=== PATIENT | male | born 1960 | race African-American/Black ===

== ENCOUNTER 2016-07-09 09:00 | Inpatient (IN) | payer OTHER ==
[~2016-07-09] VITALS: Ht 170.2 cm; Wt 123.1 kg
[2016-07-09] VITALS (49 sets, daily range): BP systolic 75–159; BP diastolic 41–72
--- NOTE | ~2016-07-09 | DEA ---
[facility] [place] [address] SUMMARY Name: [facility] Room #: 243-P [facility] IN M.R.#: [id number] Admission: 07/09/16 Attend Phys: Jigna Chawla MD Discharge: 08/01/16 Date of : 56 Report #: [id number] THIS REPORT FOR: //name// CC: Kevin Chawla DATE OF SERVICE: 08/01/2016 EXPIRATION DATE: 08/01/2016 REASON FOR : 1. Sepsis. 2. Septic shock. 3. Multiorgan failure. 4. Respiratory failure. 5. Aspiration pneumonitis. 6. Acute kidney injury requiring dialysis. CONSULTATION: 1. General surgery. 2. Infectious disease. 3. GI. 4. Nephrology. PROCEDURES DONE: Numerous including multiple chest x-rays, videoscopic swallowing, numerous CTs. Resuscitation on multiple occasions. HISTORY OF PRESENT ILLNESS: The patient is a 55-year-old who presented to the emergency room from his nursing facility. His facility stated that he had altered mental status and he was admitted to the intensive care unit in respiratory failure, acute kidney injury, was found to have an elevated creatinine and CPK of 20,000. He is known to have coronary artery disease status post CABG, status post AICD for a sick sinus syndrome. Numerous consultations were obtained on the patient. Fortunately enough, the patient improved and he was moved out of the intensive care unit after stabilizing his conditions with sepsis protocol. All of the consultations were obtained on the patient during his hospital stay. He was moved to the floor and failed swallowing evaluations. A PEG tube was placed for the patient. He stayed in the floor for a few days and then moved to the ICU because of a possible aspiration. His condition deteriorated within 48 hours after the aspirations, was intubated and started on renal replacement therapy with continuous dialysis for acute kidney injury. He had multiple resuscitations on the day of his . I had a lengthy discussion with his sister who is the next of kin and explained the situation for her. The patient was on max doses of pressors requiring repeated resuscitations with all the CPR medications. After I discussed with the family, specifically his sister, decision was made to take [address] [address] SUMMARY Name: SUMANTH ESCALANTE [facility] Room #: 243-P [facility] IN M.R.#: [id number] Admission: 07/09/16 Attend Phys: Jigna Chawla MD Discharge: 08/01/16 Date of : 56 Report #: [id number] the patient comfort care and discontinue all current medical treatment due to nonresponse and deterioration of his condition. He was pronounced by another physician and succumbed to immediately after withdrawal of care. DISCHARGE CONDITION: To geovanny. <ELECTRONICALLY SIGNED> By: Danielle Pantoja MD 08/17/16 1524 1445 1657 Danielle Pantoja MD /nt
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
--- NOTE | ~2016-07-09 | P ---
[facility] [place] [address] PROCEDURE REPORT Name: SUMANTH ESCALANTE [facility] Room #: 430-P ADM IN M.R.#: [id number] Admission: 07/09/16 Attend Phys: Jigna Chawla MD Discharge: Date of : 56 Report #: [id number] THIS REPORT FOR: //name// CC: Gaetano Wolf DO Arianna Chawla DATE OF SERVICE: 07/29/2016 PATIENT OF: Dr. Jigna Chawla, Dr. Mistry and Dr. Kevin Wolf. Reason for EGD was for possible PEG tube placement. The patient has removed several PEG tubes in the past on his own. He has no axis for food or fluid administration. Informed consent for this procedure was obtained from the patient's family prior to the administration of any medication. The risks of the procedure, which include bleeding, perforation, infection, complications of sedation and the possibility I could miss something were explained to the DPOA and they have given their consent for the PEG tube placement. Ancef 1 gram was administered IV piggyback prior to the procedure. The RatingBugn upper videoscope was introduced through the upper esophageal sphincter and advanced under direct visualization to the second portion of the duodenum. Findings were noted on withdrawal of the scope. Duodenal mucosa appears normal throughout its entirety. Pylorus, normal mucosa. Antrum, normal mucosa. Body, normal mucosa. There were several places where the patient has had previous PEG site that were visible on the greater curvature of the stomach. Cardia and fundus, normal mucosa. Retroflex view did not reveal any abnormalities. Scope was withdrawn to the esophagus. Esophageal mucosa appears normal throughout its entirety. The scope was advanced down into the stomach again. Despite, multiple attempts to locate a proper axis point for the PEG tube, I was never convinced that any of them were safe for PEG tube placement as they appeared that possibly a piece of colon or scar tissue was right there blocking the insertion of the PEG tube; therefore, the procedure was terminated and the scope was withdrawn. The patient went to the recovery area in stable condition. He tolerated the procedure well, but no PEG tube was placed because there was no axis point. My recommendations were to consult surgery and I have put a consult in for Dr. Curiel for PEG tube placement after discuss with Dr. Mistry who agreed and hopefully Dr. Curiel will be able to do a mini laparoscopy and be able to get this PEG tube in safely for the patient. [address] [address] PROCEDURE REPORT Name: SUM[facility] ESCALANTE [facility] Room #: 430-P [facility] IN .R.#: [id number] Admission: 07/09/16 Attend Phys: Jigna Chawla MD Discharge: Date of : 56 Report #: [id number] Thank you very much once again for allowing me to participate in his care, Dr. Mistry. <ELECTRONICALLY SIGNED> By: Martha Foster DO 07/30/16 1356 1453 2248 Martha Foster DO /nt
--- NOTE | ~2016-07-09 | 2DMMODE ---
[facility] [place] [address] 2 D/M-MODE ECHOCARDIOGRAM Name: SUMANTH ESCALANTE [facility] Room #: 250-P [facility] IN [facility].#: [id number] Admission: 07/09/16 Attend Phys: Jigna Chawla MD Discharge: Date of : 56 Date of Service: 07/13/1620 Report #: [id number] THIS REPORT FOR: //name// Transthoracic Echocardiography Ordering physician: Danielle Pantoja I. Referring physician: Kevin Wolf Ahmed I. Roller Shop Supervisor: VLADIMIR Hodges Indications/History: Sepsis, HTN, DM, PPM. BP: 98 / 49 HR: 80bpm Height: 67in Weight: 314.3lb Study data: M-mode, complete 2D, complete spectral Doppler, and color Doppler. Location: Bedside. Routine. Image quality was adequate. The study was technically limited due to poor acoustic window availability and body habitus. Intravenous contrast (Definity) was administered. 2D measurements Normal Normal LVID ED 51.5mm 36-57 IVS ED 13mm 6-11 LVID ES 32.8mm 23-40 LVPW ED 12.5mm 6-11 LA volume index 16-28 AoRoot diam ED 27.9mm 21-37 LVOT diameter 23mm 18-23 Findings: Left ventricle: The cavity size was normal. Wall thickness was increased in a pattern of mild LVH. Systolic function was normal. Wall motion was normal. Right ventricle: The cavity size was normal. Pacer wire or catheter noted in right ventricle. Systolic function was normal. Right atrium: The atrium was dilated. Pacer wire or catheter noted in right atrium. Left atrium: The atrium was dilated. Aortic valve: Structurally normal valve. Doppler: There was no stenosis. No regurgitation. Peak velocity: 152.8cm/s (S). Mitral valve: Structurally normal valve. Doppler: [facility] [address] [place] [address] 2 D/M-MODE ECHOCARDIOGRAM Name: SUMANTH ESCALANTE III Room #: 250-P ADM IN Ashish.#: [id number] Admission: 07/09/16 Attend Phys: Jigna Chawla MD Discharge: Date of : 56 Date of Service: 07/13/16 0920 Report #: [id number] findings are consistent with mild stenosis. Mild regurgitation. Peak E-wave velocity: 144.3cm/s. Mean gradient: 6.7mm Hg (D). Peak gradient: 8.3mm Hg (D). Peak A-wave velocity: 113cm/s. Tricuspid valve: Structurally normal valve. Doppler: There was no evidence for stenosis. Moderate-severe regurgitation. Regurgitant peak velocity:366cm/s. Peak RV-RA gradient:54mm Hg (S). Pulmonic valve: Structurally normal valve. Doppler: There was no evidence for stenosis. Trivial regurgitation. Pericardium: There was no pericardial effusion. Aorta: Aortic root: The aortic root was normal in size. Pulmonary artery: Systolic pressure was estimated to be54mm Hg. Plus the right atrial pressure. Diastolic function: The study is not technically sufficient to allow evaluation of LV diastolic function. Systemic veins: Inferior vena cava: Not visualized. Conclusions 1. Left ventricle: The cavity size was normal. Wall thickness was increased in a pattern of mild LVH. Systolic function was normal. Wall motion was normal. 2. Right atrium: The atrium was dilated. 3. Left atrium: The atrium was dilated. 4. Aortic valve: Structurally normal valve. 5. Mitral valve: Structurally normal valve. Mild regurgitation. 6. Tricuspid valve: Structurally normal valve. Moderate-severe regurgitation. 7. Pulmonary arteries: Systolic pressure was estimated to be54mm Hg. <ELECTRONICALLY SIGNED> By: Devan Pike MD 07/13/16 1216 0920 1216 Devan Pike MD /rafal
--- NOTE | ~2016-07-09 | HC ---
[facility] [place] [address] CONSULTATION Name: SUMANTH ESCALANTE [facility] Room #: 250-P ADM IN M.R.#: [id number] Admission: 07/09/16 Attend Phys: Jigna Chawla MD Discharge: Date of : 56 Report #: [id number] THIS REPORT FOR: //name// CC: Kevin Chawla DATE OF SERVICE: 07/09/2016 REASON FOR CONSULTATION: Acute kidney injury, critical care emergency room consultation. HISTORY OF PRESENT ILLNESS: This 55-year-old male is seen in consultation for evaluation of acute kidney injury. He was previously hospitalized at [facility] in February of this year due to altered mental status and slurred speech. [facility] a [facility]. He has a history of coronary artery disease with previous coronary artery bypass surgery and type 2 diabetes mellitus. PAST MEDICAL HISTORY: He has hypothyroidism, dyslipidemia, sick sinus syndrome and a history of previous pacemaker placement. The patient apparently grew increasingly confused and weak at the [facility] and was found an unresponsive condition in a pool of vomit. He was suspected of aspiration. An airway was placed and he was transported to the emergency room where he was subsequently intubated. PAST MEDICAL HISTORY: Otherwise remarkable as described above. He has undergone previous coronary artery bypass surgery. He has an indwelling permanent pacemaker. He has a history of hypertension, diabetes mellitus and chronic diarrhea. MEDICATIONS: Reported on admission include Imodium, Lasix, aspirin, Glucophage, Solu-Cortef, buspirone, Ultram, multivitamin, melatonin, clonidine, Desyrel, Aldactone, Flomax, Questran, Tums, vitamin D, Zestril, Tylenol, Synthroid, vitamin C, Ventolin, and Acidophilus. ALLERGIES: Include STATINS. FAMILY HISTORY, PERSONAL AND SOCIAL HISTORY, REVIEW OF SYSTEMS: Otherwise unknown. PHYSICAL EXAMINATION: GENERAL: At the time of consultation in the emergency room revealed a chronically ill, intubated, debilitated patient who was unresponsive. VITAL SIGNS: Blood pressure 164/66, pulse 80, temperature 36.1, respirations 27. [facility] [address] [place] [address] CONSULTATION Name: SUMANTH ESCALANTE [facility] Room #: [facility]-P [facility] IN M.R.#: [id number] Admission: 07/09/16 Attend Phys: Jigna Chawla MD Discharge: Date of : 56 Report #: [id number] SKIN: Dry. There was diminished turgor noted. HEENT: Mucous membranes were dry. The head was normocephalic and atraumatic. The sclerae are white. The pharynx is benign. NECK: Supple. There was no JVD present. LUNGS: Mahoney reveal coarse rhonchi bilaterally. CARDIOVASCULAR: Reveals a regular rate and rhythm without rub. ABDOMEN: Obese, soft and nontender without palpable mass or organomegaly. Marx catheter is in place draining a scant amount of concentrated appearing urine. NEUROLOGIC: Reveals the patient to be deeply sedated and unresponsive at this time. LABORATORY STUDIES: Available at the time of consultation include sodium 150, potassium 3.3, chloride 105, CO2 of 28, BUN 22, creatinine 5.6, glucose 113, calcium 9.8. White blood cell count 13,700, hemoglobin 12.0, hematocrit 36.4, platelet count 263,000. ASSESSMENT: 1. Acute kidney injury in the setting of a dehydrated patient. He is clearly clinically dehydrated. He has hypokalemia and metabolic alkalosis suggesting prerenal azotemia as a primary component. He has no hard indications for undertaking dialysis treatment at this time in view of his low potassium and alkalotic state. He may progress to needing this if he suffers acute tubular necrosis related to his aspiration and pulmonary event. We will follow him closely and continue isotonic/hypotonic fluid resuscitation. We will alternate fluids in view of his preexisting hypernatremia. 2. Hypernatremia suggesting dehydration. 3. Hypokalemia for initial replacement. 4. Respiratory failure, post suspected aspiration. 5. Diabetes mellitus. 6. Coronary artery disease status post previous coronary artery bypass surgery. 7. Cardiac arrhythmia status post pacemaker placement. PLAN: This patient is critically ill and will be admitted to the intensive care unit for further fluid and electrolyte management as well as mechanical ventilation. Thank you very much for this gentleman's consultation. Critical care time 1 hour. <ELECTRONICALLY SIGNED> By: Heladio Mars MD 07/13/161930 0755 51 Heladio Mars MD /nt
--- NOTE | ~2016-07-09 | HC ---
[facility] [place] [address] CONSULTATION Name: SUMANTH ESCALANTE [facility] Room #: [facility]-P [facility] IN M.R.#: [id number] Admission: 07/09/16 Attend Phys: Jigna Chawla MD Discharge: 08/01/16 Date of : 56 Report #: [id number] THIS REPORT FOR: //name// CC: Kevin Chawla DATE OF SERVICE: 07/29/2016 I have been asked to evaluate this 55-year-old male who was presented with severe aspiration pneumonia, inability to swallow and keep foods down, who has been hospitalized at a nursing facility. The patient has mental challenge and unable to give any adequate information. His past medical history is consistent with multiple medical illnesses as well as what appears to be a median sternotomy, cardiac surgery scar as well as a right upper quadrant presumed cholecystectomy scar. The patient is currently of the state and has a durable power of sports attorney who is a sister. ALLERGIES: Not obtainable, see the record. PAST MEDICAL HISTORY: As noted above. REVIEW OF SYSTEMS: Not obtainable. PHYSICAL EXAMINATION: GENERAL: Demonstrates the patient resting comfortably in bed, unable to give adequate information. LUNGS: Clear as the bases. CARDIOVASCULAR: Status regular rate and rhythm. ABDOMEN: Not distended, right upper quadrant subcostal scar consistent with cholecystectomy, nontender. No guarding or rebound. Upper midline median sternotomy scar extends onto the abdominal skin and midline of the abdomen is unremarkable. NEUROLOGIC: Mental challenged. DIAGNOSTIC IMPRESSION: Recurrent aspiration pneumonia, protein calorie malnutrition. PLAN: The patient will benefit from an open gastrostomy tube insertion as the patient was unable to have a percutaneous endoscopic gastrostomy tube placed by GI. [facility] [address] [place] [address] CONSULTATION Name: SUMANTH ESCALANTE Ramin [facility] Room #: 243-P [facility] IN M.R.#: [id number] Admission: 07/09/16 Attend Phys: Jigna Chawla MD Discharge: 08/01/16 Date of : 56 Report #: [id number] Thank you for allowing us to participate in his care and we will proceed with scheduling and proceed with the open gastrostomy tube placement. <ELECTRONICALLY SIGNED> By: Kenneth Bland MD, FACS 08/03/16 1737 0923 1126 Kenneth Bland MD, FACS /nt
--- NOTE | ~2016-07-09 | EEG ---
[facility] [place] [address] ELECTROENCEPHALOGRAM Name: SUMANTH ESCALANTE [facility] Room #: 250-P ADM IN M.R.#: [id number] Admission: 07/09/16 Attend Phys: Jigna Chawla MD Discharge: Date of : 56 Report #: [id number] THIS REPORT FOR: //name// CC: Kevin Chawla DATE OF SERVICE: 07/14/2016 This patient is being evaluated for altered mental status. EEG was done by placing the electrodes by standard 10-20 system of electrode placement. Both referential and sequential montages were used for recording. Background activity in this patient's EEG is about 6-7 Hz and 15-20 microvolts. It is a symmetrical activity, but it is slow on both sides. Activity continued to be about the same throughout the records. It is difficult to tell when the patient is asleep or awake. Photic stimulation was unremarkable. Throughout the record, no active epileptiform activity was noticed. IMPRESSION: This is an abnormal EEG which would be consistent with the diagnosis of encephalopathy. However, the EEG is nonspecific and can occur with various other etiologies including effect of psychotropic medication, dementia, drowsiness, etc. Clinical correlation is recommended. Thank you very much for this referral. <ELECTRONICALLY SIGNED> By: Randolph Ureña MD 07/16/16 1235 1809 1833 Randolph Ureña MD /nt
--- NOTE | ~2016-07-09 | EKG ---
[address] [place] [address] ELECTROCARDIOGRAM REPORT Name: SUMANTH ESCALANTE III Room #: 250-P ADM IN M.R.#: [id number] Admission: 07/09/16 Attend Phys: Jigna Chawla MD Discharge: Date of : 56 Report #: [id number] THIS REPORT FOR: //name// [facility] Test Date: 2016-07-10 Test Time: 00:59:25 Pat Name: SUMANTH ESCALANTE Department: Room: 250 P Gender: M Brick Loader: ADAM RAYMODN : 1960 Requested By: Jigna Chawla Order Number: [id number] MD: Suresh Angel Measurements Intervals [place] Rate: 81 P: GA: 111 QRS: 86 QRSD: 104 T: 58 QT: 471 QTc: 547 Interpretive Statements Sinus rhythm Repol abnrm suggests ischemia, anterior leads Prolonged QT interval no previous ECGs available for comparison Electronically Signed On 07-13-2016 8:14:09 YARDER PUNCHER by Suresh Angel [email or web address] <ELECTRONICALLY SIGNED> By: Suresh Angel MD, [facility] 07/13/16 0814 0059 0059 Suresh Angel MD, FACC /EPI
--- NOTE | ~2016-07-09 | O ---
[facility] [place] [address] OPERATIVE REPORT Name: SUMANTH ESCALANTE [facility] Room #: 243-P [facility] IN M.R.#: [id number] Admission: 07/09/16 Attend Phys: Jigna Chawla MD Discharge: 08/01/16 Date of : 56 Report #: [id number] THIS REPORT FOR: //name// CC: Kevin Chawla DATE OF SERVICE: 07/30/2016 PREOPERATIVE DIAGNOSES: Protein calorie malnutrition, inability to swallow. POSTOPERATIVE DIAGNOSES: Protein calorie malnutrition, inability to swallow. OPERATIVE PROCEDURE: Open gastrostomy tube insertion. SURGEON: Kenneth Bland M.D. CHECKROOM ATTENDANT: Navin Butler M.D. SECOND PENSION FUND MANAGER: Sobeida Gould MS4. INDICATIONS: A 55-year-old male who is unable to swallow, requires protein calorie malnutrition. OPERATIVE PROCEDURE: The patient was brought to the operating room suite and had satisfactory induction of general endotracheal anesthesia. Permission had been obtained from the patient's sister, durable power of environmental attorney. After satisfactory induction of general endotracheal anesthesia, the patient's entire abdomen was prepped and draped in usual sterile procedure with DuraPrep solution. An upper midline incision was performed. A few adhesions were present. These were taken down with electrocautery. The stomach was identified and grasped with [place] clamps. Two pursestring sutures of 2-0 PDS were placed along the greater curvature. A gastrotomy was then performed with the electrocautery. A 20-Swiss gastrostomy tube with double lumen and a balloon was then placed directly into the stomach under direct vision. The inner suture was ligated. The outer suture was ligated. Forward flushing of saline through both ports was accomplished without difficulty. The gastrostomy tube had been brought in through a stab wound in the left upper quadrant. Two old sutures were then utilized to approximate the serosal surface of the stomach to the anterior abdominal wall. This was accomplished at the 12, 6 and 9 positions. After this was satisfactory, the fascia was then approximated with running looped double stranded #1 PDS suture. After satisfactory fascial closure, irrigation of subcutaneous tissues was performed. Skin margins were then approximated with skin ebonie. Estimated blood loss less than 10 mL. [facility] [address] [place] [address] OPERATIVE REPORT Name: [facility] Room #: 243-P [facility] IN [facility].#: [id number] Admission: 07/09/16 Attend Phys: Jigna Chawla MD Discharge: 08/01/16 Date of : 56 Report #: [id number] patient tolerated the procedure well and he returned directly to recovery room in satisfactory and stable condition. <ELECTRONICALLY SIGNED> By: Kenneth Bland MD, FACS 08/17/16 1534 1036 1121 Kenneth Bland MD, FACS /nt
--- NOTE | ~2016-07-09 | HC ---
[facility] [place] [address] CONSULTATION Name: SUMANTH ESCALANTE [facility] Room #: [facility] IN M.R.#: [id number] Admission: 07/09/16 Attend Phys: Jigna Chawla MD Discharge: Date of : 56 Report #: [id number] THIS REPORT FOR: //name// CC: Kevin Chawla DATE OF SERVICE: 07/10/2016 REASON FOR CONSULTATION: Tachyarrhythmias. HISTORY OF PRESENT ILLNESS: This is an unfortunate 55-year-old obese black male who was admitted due to possible aspiration pneumonia and sepsis. The patient had been intubated and had been monitored when on the morning of consultation was identified as having a wide complex tachycardia. The patient's magnesium was low at 1.1 with a potassium of 3.3. The patient's rhythm strip demonstrated a slightly wider QRS, ____, but no evidence of AV disassociation present. The onset of this arrhythmia was not able to be caught on monitor. He subsequently converted on diltiazem for rate control even though he had been on IV amiodarone. The patient has since been in a sinus tachycardia without any significant recurrence. PAST MEDICAL HISTORY: Significant for: 1. Vague psychiatric issues, which fed a noncomplaint lifestyle. 2. Obesity. 3. Diabetes mellitus. 4. Hypertension. 5. Hypothyroidism. 6. Possible dysphagia, having had a feeding tube in the past. 7. Chronic diarrhea. ALLERGIES: STATINS, but the reaction is undefined. MEDICATIONS: Imodium, Lasix, aspirin, Glucophage, ____, buspirone, Ultram, multivitamin, melatonin, clonidine, ____ Aldactone, Flomax, Questran, Tums, vitamin D, Zestril, Tylenol, Synthroid, vitamin C, Zofran, Ventolin and acidophilus. PAST SURGICAL HISTORY: 1. Aortocoronary bypass grafting times 3. 2. Pacemaker placement in left chest for reasons undetermined. 3. Right knee surgery for infected knee. SOCIAL HISTORY: The patient is a former alcohol user, unknown history of tobacco or recreational drugs. He does live in a care facility. REVIEW OF SYSTEMS: Unable to be obtained due to the patient being intubated, [facility] [address] [place] [address] CONSULTATION Name: SUMANTH ESCALANTE [facility] Room #: [address] [place] [address] [place] ..#: [id number] Admission: 07/09/16 Attend Phys: Jigna Chawla MD Discharge: Date of : 56 Report #: [id number] but the review is noted from the chart. LABORATORY DATA: As stated above, but in addition to this, demonstrated a BUN and creatinine of 22 and 5.6 with an estimated GFR of 13. PHYSICAL EXAMINATION: GENERAL: An obese -Surinamese male, intubated, resting comfortably. HEENT: Normocephalic, atraumatic. Pupils are equal, round, reactive to light and accommodation. Extraocular muscles are intact. Sclerae and conjunctivae are anicteric. NECK: JVD is normal. Carotid upstrokes are bilaterally symmetrical. No bruits are heard. No thyromegaly. No lymphadenopathy. LUNGS: Clear to auscultation. No wheezes, rhonchi or crackles. No CVA tenderness. CARDIAC: Demonstrates a regular rhythm. Normal first and second heart sounds. No ventricular or atrial gallops, no rubs noted. No murmurs. No lifts or heaves, PMI normal. ABDOMEN: Soft, nontender, nondistended. Normal bowel sounds. EXTREMITIES: Without cyanosis, clubbing or edema. Distal pulses are intact. DTR symmetrical. NEUROLOGIC: Cranial nerves 2-12 are grossly normal and symmetrical. PSYCHIATRIC: Alert, oriented with normal affect. SKIN: Warm and dry. IMPRESSION: Tachyarrhythmias, there appears to be some evidence that it may be more of an atrial than ventricular. Either way, I am going to continue the diltiazem because it was needed to suppress the rate and the amiodarone in case we are dealing with an ischemic origin and ventricular tachyarrhythmias. We will follow along. <ELECTRONICALLY SIGNED> By: Devan Pike MD 07/11/16 1700 1512 2308 Devan Pike MD /nt
--- NOTE | ~2016-07-09 | HC ---
[facility] [place] [address] CONSULTATION Name: SUMANTH ESCALANTE [facility] Room #: 430-P ADM IN M.R.#: [id number] Admission: 07/09/16 Attend Phys: Jigna Chawla MD Discharge: Date of : 56 Report #: [id number] THIS REPORT FOR: //name// CC: Kevin Chawla HISTORY OF PRESENT ILLNESS: The patient is a 55-year-old black male who I have been asked to see for further evaluation of consideration of gastrostomy tube placement. He experienced progressive deterioration at the end of June approximately 2 weeks ago and weakness. He was found in a pool of his vomit after a fall and aspiration was suspected. He underwent resuscitation shortly thereafter and has had problems with dysphagia. PAST MEDICAL HISTORY: Remarkable for diabetes, hypothyroidism, dyslipidemia, sick sinus syndrome, coronary artery disease, CABG x 3 and pacemaker. MEDICATIONS ON ADMISSION: Imodium, Lasix, aspirin, Glucophage, Solu-Cortef, buspirone, Ultram, multivitamin melatonin, clonidine, Desyrel, Aldactone, Flomax, Questran, Tums, vitamin D, Zestril, Tylenol, Synthroid, vitamin C, Ventolin and acidophilus. ALLERGIES: He is allergic to STATINS. FAMILY HISTORY: Negative for inflammatory bowel disease or colon cancer. SOCIAL HISTORY: Past alcohol use, no drugs and no tobacco. REVIEW OF SYSTEMS: Not possible secondary to anxiety and altered mental status. PHYSICAL EXAMINATION: GENERAL: The patient is currently afebrile. VITAL SIGNS: Stable; however, he has periods of anxiety where his respiratory rate increases; otherwise, his baseline respiratory rate is in the range of 18-20 per minute. HEENT: Nonicteric. NECK: No JVD, thyromegaly or bruits. CARDIOVASCULAR: Not performed. PULMONARY: Not performed. ABDOMEN: Soft, nondistended and nontender. Normoactive bowel sounds, no hepatosplenomegaly. No stigmata of chronic liver disease. No abnormal masses or bruits. EXTREMITIES: No clubbing, cyanosis or edema. NEUROLOGIC: Not performed. RECTAL: Not performed. LABORATORY DATA: Pertinent labs include sodium 151, potassium 3.3, chloride 111, BUN 55 and creatinine 3.8. Serum chemistry also notable for normal liver [address] [address] CONSULTATION Name: SUMANTH ESCALANTE [facility] Room #: [address] [place] [address] [place] .R.#: [id number] Admission: 07/09/16 Attend Phys: Jigna Chawla MD Discharge: Date of : 56 Report #: [id number] tests. Albumin 2.9, hemoglobin 9.5 and platelet count 283. I do not have an INR on him. ASSESSMENT AND PLAN: In summary, in assistance for his recovery, gastrostomy tube feeding is reasonable, given recent difficulty swallowing secondary to multiple comorbid conditions. At this time, his acute abnormalities would suspend elective placement for the next couple of days. We will reassess as he proceeds and consider gastrostomy tube placement when safe. Again, I appreciate the opportunity to participate in the care of this nice man. <ELECTRONICALLY SIGNED> By: Petey Prater MD 07/26/16 1539 1225 1357 Pradip Dexter MD /nt
--- NOTE | ~2016-07-09 | EKG ---
[address] [place] [address] ELECTROCARDIOGRAM REPORT Name: SUMANTH ESCALANTE [id number] Admission: 07/09/16 Attend Phys: Discharge: Date of : 56 Report #: [id number] THIS REPORT FOR: //name// [facility] ED Test Date: 2016-07-09 Test Time: 09:02:47 Pat Name: SUMANTH ESCALANTE Department: Room: Gender: Trade Analyst: Kimberly IRIZARRY : 1960 Requested By: Mendoza Alberts Order Number: [id number] MD: Trip Zendejas Measurements Intervals [place] Rate: 103 P: 44 MA: 143 QRS: 104 QRSD: 101 T: 6 QT: 382 QTc: 500 Interpretive Statements Sinus tachycardia Anterior ST changes consider ischemia Electronically Signed On 07-09-2016 11:20:46 LEAD DESIGNER by Trip Zendejas [email or web address] <ELECTRONICALLY SIGNED> By: Trip Zendejas MD 07/09/16 1120 0902 0902 Trip Zendejas MD /EPI
[~2016-07-09 09:00] MED LIST: ALDACTONE25 MG PO; ASPIR 8181 MG PO; BUSPIRONE HCL10 MG PO; CLONIDINE0.1 PO; CORTEF 20 MG TA20 M1 PO; CORTEF10 MG PO; FLOMAX0.4 MG PO; LASIX 20 MG TAB20 MG PO; LEVOTHYROXIN0.125 M1 PO; LEVOTHYROXINE 0.15MG PO; LISINOPRIL10 MG PO; LOPERAMIDE 2 MG2 M1 PO; MELATONIN3 MG PO; METFORMIN HCL500 MG PO; MULTI VITAMIN1 EACH PO; QUESTRAN PACKET4 GM PO; TRAMADOL 50 MG50 MG PO; TRAZODONE HCL50 MG PO; TUMS PO; TYLENOL325 MG PO; VENTOLIN HFA 1818 GM INH; VISTARIL 25 MG25 M1 PO; VITAMIN D 5050000 I1 PO
[2016-07-09 09:22] LABS: ABG SAMPLE TYPE ARTERIAL; BE(vivo) 1.6 mmol/L (-2 to +3); O2(CT) 18.4 mL/dL (15.0-23.0); O2Hb 98.2 % (92.0-98.0); PCO2 40.4 mmHg (35.0-45.0); PO2 198.2 mmHg (80.0-100.0); pH 7.427 (7.360-7.450); sO2 99.4 % (92.0-98.0); tCO2 27.3 mmol/L (24.0-30.0)
[2016-07-09 09:23] LABS: LACTATE 4.02 mmol/L (0.5-2.0); STICK SITE R.RADIAL
[2016-07-09 09:50] LABS: URINE BILIRUBIN 2+ (Negative); URINE BLOOD NEGATIVE (Negative); URINE GLUCOSE-RANDOM* NEGATIVE (Negative); URINE KETONES NEGATIVE (Negative); URINE NITRITE NEGATIVE (Negative); URINE PROTEIN (DIPSTICK) TRACE (Negative); URINE SPECIFIC GRAVITY >= 1.030 (1.003-1.035); URINE UROBILINOGEN 0.2 E.U./dl (0.2-1.0)
[2016-07-09 09:52] LABS: URINE COLOR DK YELLOW
[2016-07-09 09:53] LABS: ICTOTEST (BILI CONFIRMATORY) Positive (Negative)
[2016-07-09 10:03] LABS: HEMATOCRIT 36.4 % (42.0-52.0); MCH 27.6 pg (26.0-34.0); MCHC 32.9 % (28.0-37.0); MCV 83.8 fL (80.0-100.0); PLATELET COUNT 263 thou/uL (150-400); RBC 4.35 mil/uL (4.50-6.00); RDW 15.6 % (10.5-14.5); WBC 13.7 thou/uL (4.0-11.0)
[2016-07-09] MEDS ORDERED: APAP500 PO (10:07)
[2016-07-09 10:08] LABS: MANUAL DIFF YES
[2016-07-09] MEDS ORDERED: TYLENOL325 MG PO (10:08)
[2016-07-09 10:11] LABS: CALCIUM 9.8 mg/dL (8.5-10.1); CREATININE 5.6 mg/dL (0.6-1.3); POTASSIUM 3.3 mmol/L (3.5-5.1)
[2016-07-09] MEDS ORDERED: LEVOTHYROXINE 0.15MG PO (10:11)
[2016-07-09] MEDS ORDERED: VITAMINC500 PO (10:14)
[2016-07-09] MEDS ORDERED: ONDANSETRON HCL4 M2 PO (10:16)
[2016-07-09] MEDS ORDERED: VENTOLIN HFA 1818 GM INH (10:16)
[2016-07-09] MEDS ORDERED: ACIDOPHILUS1 EAC3 PO (10:17)
[2016-07-09 10:18] LABS: TROPONIN-I 0.12 ng/mL (<0.04-0.07)
[2016-07-09 10:28] LABS: ABSOLUTE NEUTROPHILS 9.7 thou/uL (1.4-8.2); TOTAL CELL COUNT 100
[2016-07-09 13:23] LABS: ABG SAMPLE TYPE VENOUS; BE(vivo) 0.2 mmol/L (-2 to +3); HCO3 25.4 mmol/L (22.0-26.0); O2(CT) 11.1 mL/dL (15.0-23.0); O2Hb VENOUS 68.5 (65.0-85.0); PCO2 VENOUS 43.6 mmHg (41.0-51.0); PO2 VENOUS 38.1 mmHg (35.0-45.0); sO2 VENOUS 71.2 % (65.0-85.0); tCO2 26.8 mmol/L (24.0-30.0)
[2016-07-09 13:24] LABS: STICK SITE LINE; TIDAL VOLUME 650 ml
[2016-07-09 13:25] LABS: VDS CMV MODE cc
[2016-07-09 14:44] LABS: ABG SAMPLE TYPE VENOUS; BE(vivo) 0.1 mmol/L (-2 to +3); HCO3 25.1 mmol/L (22.0-26.0); O2(CT) 11.8 mL/dL (15.0-23.0); O2Hb VENOUS 70.2 (65.0-85.0); PO2 VENOUS 38.7 mmHg (35.0-45.0); sO2 VENOUS 72.8 % (65.0-85.0); tCO2 26.4 mmol/L (24.0-30.0)
[2016-07-09 14:45] LABS: TIDAL VOLUME 500 ml
[2016-07-09 15:39] LABS: ABG SAMPLE TYPE VENOUS; BE(vivo) -1.6 mmol/L (-2 to +3); LACTATE 2.36 mmol/L (0.5-2.0); O2Hb VENOUS 71.5 (65.0-85.0); PCO2 VENOUS 38.3 mmHg (41.0-51.0); PO2 VENOUS 39.7 mmHg (35.0-45.0); TIDAL VOLUME 500 ml; sO2 VENOUS 74.7 % (65.0-85.0); tCO2 24.2 mmol/L (24.0-30.0)
[2016-07-09 16:53] LABS: ABG SAMPLE TYPE VENOUS; HCO3 22.1 mmol/L (22.0-26.0); LACTATE 2.34 mmol/L (0.5-2.0); O2(CT) 12.5 mL/dL (15.0-23.0); O2Hb VENOUS 72.3 (65.0-85.0); PCO2 VENOUS 39.3 mmHg (41.0-51.0); PO2 VENOUS 40.3 mmHg (35.0-45.0); TIDAL VOLUME 500 ml; tCO2 23.3 mmol/L (24.0-30.0)
[2016-07-09 17:50] LABS: ABG SAMPLE TYPE VENOUS; BE(vivo) -1.7 mmol/L (-2 to +3); HCO3 23.4 mmol/L (22.0-26.0); LACTATE 2.32 mmol/L (0.5-2.0); O2(CT) 12.5 mL/dL (15.0-23.0); PO2 VENOUS 40.3 mmHg (35.0-45.0); sO2 VENOUS 74.2 % (65.0-85.0); tCO2 24.6 mmol/L (24.0-30.0)
[2016-07-09 17:51] LABS: TIDAL VOLUME 500 ml
[2016-07-09 18:57] LABS: ABG SAMPLE TYPE VENOUS; BE(vivo) -1.6 mmol/L (-2 to +3); HCO3 23.6 mmol/L (22.0-26.0); LACTATE 2.33 mmol/L (0.5-2.0); O2(CT) 12.5 mL/dL (15.0-23.0); O2Hb VENOUS 74.1 (65.0-85.0); PCO2 VENOUS 41.9 mmHg (41.0-51.0); PO2 VENOUS 41.4 mmHg (35.0-45.0); sO2 VENOUS 75.3 % (65.0-85.0); tCO2 24.9 mmol/L (24.0-30.0)
[2016-07-09 18:58] LABS: STICK SITE LINE; TIDAL VOLUME 500 ml
[2016-07-09 19:45] LABS: CALCIUM 8.6 mg/dL (8.5-10.1); CREATININE 6.3 mg/dL (0.6-1.3)
[2016-07-09 23:11] LABS: URINE PROTEIN-RANDOM* 45.8 mg/dL (Not Estab.)
[2016-07-10] VITALS (99 sets, daily range): BP systolic 82–172; BP diastolic 26–138
[2016-07-10 01:11] LABS: HEMATOCRIT 34.3 % (42.0-52.0); MCH 27.7 pg (26.0-34.0); MCHC 32.1 % (28.0-37.0); MCV 86.4 fL (80.0-100.0); RBC 3.97 mil/uL (4.50-6.00); RDW 15.8 % (10.5-14.5); WBC 18.7 thou/uL (4.0-11.0)
[2016-07-10 01:15] LABS: ABG SAMPLE TYPE ARTERIAL; BE(vivo) -8.7 mmol/L (-2 to +3); HCO3 15.9 mmol/L (22.0-26.0); O2Hb 98.5 % (92.0-98.0); PCO2 30.5 mmHg (35.0-45.0); PO2 412.1 mmHg (80.0-100.0); STICK SITE R.RADIAL; TIDAL VOLUME 500 ml; pH 7.336 (7.360-7.450); sO2 99.8 % (92.0-98.0); tCO2 16.9 mmol/L (24.0-30.0)
[2016-07-10 01:27] LABS: CALCIUM 8.2 mg/dL (8.5-10.1); CREATININE 6.2 mg/dL (0.6-1.3); MAGNESIUM 1.3 mg/dL (1.8-2.4); POTASSIUM 4.6 mmol/L (3.5-5.1)
[2016-07-10 04:51] LABS: ABSOLUTE NEUTROPHILS 16.1 thou/uL (1.4-8.2); BASOPHILS 0.3 % (0.0-2.0); EOSINOPHILS 0.1 % (0.0-3.0); HEMOGLOBIN 10.8 gm/dL (14.0-18.0); LYMPHOCYTES 3.8 % (24.0-44.0); MCHC 32.9 % (28.0-37.0); MCV 85.1 fL (80.0-100.0); MONOCYTES 4.2 % (1.0-8.0); PLATELET COUNT 209 thou/uL (150-400); POLYS 91.6 % (36.0-66.0); RBC 3.88 mil/uL (4.50-6.00); RDW 16.1 % (10.5-14.5); WBC 17.6 thou/uL (4.0-11.0)
[2016-07-10 05:04] LABS: MANUAL DIFF NO
[2016-07-10 05:15] LABS: ALBUMIN 2.8 g/dL (3.4-5.0); ALKALINE PHOSPHATASE 57 U/L (46-116); ANION GAP 19 mmol/L (7-16); BUN 27 mg/dL (7-18); CHLORIDE 102 mmol/L (98-107); CO2 20 mmol/L (21-32); GLUCOSE 224 mg/dL (70-99); MAGNESIUM 1.3 mg/dL (1.8-2.4); PHOSPHORUS 4.7 mg/dL (2.5-4.9); POTASSIUM 4.5 mmol/L (3.5-5.1); SGOT 454 U/L (15-37); SGPT 86 U/L (30-65); SODIUM 141 mmol/L (136-145); TOTAL BILIRUBIN 2.3 mg/dL (<0.1-1.0); TOTAL PROTEIN 7.6 g/dL (6.4-8.2); TROPONIN-I 0.23 ng/mL (<0.04-0.07)
[2016-07-10 07:11] LABS: URINE CREATININE-RANDOM* 421.3 mg/dL (Not Estab.)
[2016-07-11] VITALS (48 sets, daily range): BP systolic 90–150; BP diastolic 48–74
[2016-07-11 05:19] LABS: ABG SAMPLE TYPE ARTERIAL; BE(vivo) -5.7 mmol/L (-2 to +3); HCO3 19.6 mmol/L (22.0-26.0); LACTATE 2.19 mmol/L (0.5-2.0); O2(CT) 18.2 mL/dL (15.0-23.0); O2Hb 97.2 % (92.0-98.0); PCO2 37.5 mmHg (35.0-45.0); PO2 107.9 mmHg (80.0-100.0); STICK SITE L.RADIAL; pH 7.335 (7.360-7.450); sO2 97.7 % (92.0-98.0); tCO2 20.7 mmol/L (24.0-30.0)
[2016-07-11 05:20] LABS: TIDAL VOLUME 500 ml
[2016-07-11 06:19] LABS: ALBUMIN 2.5 g/dL (3.4-5.0); PHOSPHORUS 3.6 mg/dL (2.5-4.9); POTASSIUM 3.6 mmol/L (3.5-5.1)
[2016-07-12] VITALS (12 sets, daily range): BP systolic 95–108; BP diastolic 49–65
[2016-07-12 03:42] LABS: HEMATOCRIT 28.7 % (42.0-52.0); HEMOGLOBIN 9.6 gm/dL (14.0-18.0); MCHC 33.4 % (28.0-37.0); MCV 83.8 fL (80.0-100.0); PLATELET COUNT 159 thou/uL (150-400); RBC 3.43 mil/uL (4.50-6.00); RDW 15.8 % (10.5-14.5)
[2016-07-12 03:43] LABS: MANUAL DIFF YES
[2016-07-12 03:51] LABS: ALBUMIN 2.4 g/dL (3.4-5.0); CALCIUM 7.3 mg/dL (8.5-10.1); CREATININE 6.4 mg/dL (0.6-1.3); MAGNESIUM 2.1 mg/dL (1.8-2.4); PHOSPHORUS 3.7 mg/dL (2.5-4.9); POTASSIUM 3.1 mmol/L (3.5-5.1); TOTAL BILIRUBIN 0.5 mg/dL (<0.1-1.0); TOTAL PROTEIN 6.9 g/dL (6.4-8.2)
[2016-07-12 04:19] LABS: ABSOLUTE NEUTROPHILS 9.3 thou/uL (1.4-8.2); TOTAL CELL COUNT 100
[2016-07-13] VITALS (26 sets, daily range): BP systolic 86–166; BP diastolic 49–80
[2016-07-13 04:37] LABS: ABSOLUTE NEUTROPHILS 5.9 thou/uL (1.4-8.2); BASOPHILS 0.5 % (0.0-2.0); EOSINOPHILS 5.5 % (0.0-3.0); HEMATOCRIT 27.8 % (42.0-52.0); HEMOGLOBIN 9.6 gm/dL (14.0-18.0); LYMPHOCYTES 12.9 % (24.0-44.0); MCH 28.3 pg (26.0-34.0); MCHC 34.5 % (28.0-37.0); MCV 82.2 fL (80.0-100.0); MONOCYTES 9.1 % (1.0-8.0); PLATELET COUNT 171 thou/uL (150-400); RBC 3.38 mil/uL (4.50-6.00); RDW 15.9 % (10.5-14.5); WBC 8.1 thou/uL (4.0-11.0)
[2016-07-13 05:10] LABS: ALBUMIN 2.2 g/dL (3.4-5.0); CALCIUM 7.1 mg/dL (8.5-10.1); CREATININE 6.5 mg/dL (0.6-1.3); MAGNESIUM 1.8 mg/dL (1.8-2.4); PHOSPHORUS 3.9 mg/dL (2.5-4.9); TOTAL BILIRUBIN 0.5 mg/dL (<0.1-1.0); TOTAL PROTEIN 6.6 g/dL (6.4-8.2)
[2016-07-13 05:12] LABS: MANUAL DIFF NO
[2016-07-13 05:38] LABS: POTASSIUM 2.9 mmol/L (3.5-5.1)
[2016-07-13 05:50] LABS: ABG SAMPLE TYPE ARTERIAL; BE(vivo) 7.9 mmol/L (-2 to +3); HCO3 31.4 mmol/L (22.0-26.0); LACTATE 1.52 mmol/L (0.5-2.0); O2Hb 97.9 % (92.0-98.0); PCO2 39.7 mmHg (35.0-45.0); PO2 139.5 mmHg (80.0-100.0); STICK SITE R.RADIAL; pH 7.516 (7.360-7.450); tCO2 32.6 mmol/L (24.0-30.0)
[2016-07-13 05:51] LABS: TIDAL VOLUME 500 ml
[2016-07-14] VITALS (26 sets, daily range): BP systolic 98–164; BP diastolic 50–81
[2016-07-14 05:00] LABS: HEMATOCRIT 29.5 % (42.0-52.0); HEMOGLOBIN 9.9 gm/dL (14.0-18.0); MCH 27.8 pg (26.0-34.0); MCHC 33.5 % (28.0-37.0); RBC 3.55 mil/uL (4.50-6.00); RDW 15.6 % (10.5-14.5); WBC 7.9 thou/uL (4.0-11.0)
[2016-07-14 05:07] LABS: ALBUMIN 2.1 g/dL (3.4-5.0); CALCIUM 7.3 mg/dL (8.5-10.1); CREATININE 6.3 mg/dL (0.6-1.3); MAGNESIUM 1.9 mg/dL (1.8-2.4); TOTAL BILIRUBIN 0.6 mg/dL (<0.1-1.0); TOTAL PROTEIN 6.6 g/dL (6.4-8.2)
[2016-07-14 05:10] LABS: POTASSIUM 2.8 mmol/L (3.5-5.1)
[2016-07-15] VITALS (12 sets, daily range): BP systolic 96–156; BP diastolic 61–78
[2016-07-15 05:01] LABS: ABG SAMPLE TYPE ARTERIAL; BE(vivo) 9.5 mmol/L (-2 to +3); HCO3 33.3 mmol/L (22.0-26.0); LACTATE 1.32 mmol/L (0.5-2.0); O2(CT) 15.9 mL/dL (15.0-23.0); O2Hb 96.9 % (92.0-98.0); PCO2 42.2 mmHg (35.0-45.0); PO2 97.1 mmHg (80.0-100.0); pH 7.515 (7.360-7.450); sO2 97.9 % (92.0-98.0); tCO2 34.6 mmol/L (24.0-30.0)
[2016-07-15 05:02] LABS: STICK SITE R.BRACHIAL; TIDAL VOLUME 500 ml
[2016-07-15 06:10] LABS: HEMATOCRIT 29.2 % (42.0-52.0); HEMOGLOBIN 9.9 gm/dL (14.0-18.0); MCH 28.3 pg (26.0-34.0); MCHC 33.9 % (28.0-37.0); MCV 83.6 fL (80.0-100.0); PLATELET COUNT 227 thou/uL (150-400); RBC 3.49 mil/uL (4.50-6.00); RDW 15.5 % (10.5-14.5); WBC 8.2 thou/uL (4.0-11.0)
[2016-07-15 06:12] LABS: MANUAL DIFF YES
[2016-07-15 06:36] LABS: CALCIUM 7.8 mg/dL (8.5-10.1); CREATININE 6.5 mg/dL (0.6-1.3); MAGNESIUM 1.9 mg/dL (1.8-2.4); POTASSIUM 3.3 mmol/L (3.5-5.1); TOTAL BILIRUBIN 0.6 mg/dL (<0.1-1.0); TOTAL PROTEIN 6.6 g/dL (6.4-8.2)
[2016-07-15 07:58] LABS: ABSOLUTE NEUTROPHILS 5.5 thou/uL (1.4-8.2); METAMYELOCYTES 1 %; NUCLEATED RBCS 1 /100WBC; TOTAL CELL COUNT 100
[2016-07-15 08:00] LABS: ANISOCYTOSIS 1+; POLYCHROMASIA OCCASIONAL
[2016-07-16] VITALS (26 sets, daily range): BP systolic 78–151; BP diastolic 44–82
[2016-07-16 05:28] LABS: HEMATOCRIT 28.4 % (42.0-52.0); HEMOGLOBIN 9.4 gm/dL (14.0-18.0); MCV 84.9 fL (80.0-100.0); RBC 3.34 mil/uL (4.50-6.00); RDW 15.1 % (10.5-14.5); WBC 9.6 thou/uL (4.0-11.0)
[2016-07-16 05:46] LABS: CALCIUM 8.2 mg/dL (8.5-10.1); CREATININE 6.2 mg/dL (0.6-1.3); PHOSPHORUS 6.1 mg/dL (2.5-4.9); POTASSIUM 3.2 mmol/L (3.5-5.1)
[2016-07-17] VITALS (29 sets, daily range): BP systolic 76–116; BP diastolic 44–82
[2016-07-17 05:00] LABS: ABG SAMPLE TYPE ARTERIAL; HCO3 32.5 mmol/L (22.0-26.0); LACTATE 1.35 mmol/L (0.5-2.0); O2(CT) 13.7 mL/dL (15.0-23.0); PCO2 45.1 mmHg (35.0-45.0); PO2 104.4 mmHg (80.0-100.0); pH 7.475 (7.360-7.450); sO2 98.1 % (92.0-98.0); tCO2 33.8 mmol/L (24.0-30.0)
[2016-07-17 05:01] LABS: STICK SITE R.RADIAL
[2016-07-17 05:02] LABS: FIO2 40 %; TIDAL VOLUME 500 ml
[2016-07-17 06:19] LABS: HEMATOCRIT 24.5 % (42.0-52.0); HEMOGLOBIN 8.8 gm/dL (14.0-18.0); MCH 30.2 pg (26.0-34.0); MCHC 35.7 % (28.0-37.0); MCV 84.8 fL (80.0-100.0); RBC 2.9 mil/uL (4.50-6.00); RDW 15.4 % (10.5-14.5); WBC 6.1 thou/uL (4.0-11.0)
[2016-07-17 07:01] LABS: ALBUMIN 1.9 g/dL (3.4-5.0); CALCIUM 7.3 mg/dL (8.5-10.1); MAGNESIUM 1.9 mg/dL (1.8-2.4); TOTAL BILIRUBIN 0.7 mg/dL (<0.1-1.0)
[2016-07-17 07:25] LABS: POTASSIUM 2.9 mmol/L (3.5-5.1); TOTAL PROTEIN 6.4 g/dL (6.4-8.2)
[2016-07-17 08:19] LABS: ALBUMIN 2.1 g/dL (3.4-5.0); CALCIUM 8.3 mg/dL (8.5-10.1); CREATININE 6.4 mg/dL (0.6-1.3); PHOSPHORUS 6.9 mg/dL (2.5-4.9); POTASSIUM 3.3 mmol/L (3.5-5.1)
[2016-07-18] VITALS (22 sets, daily range): BP systolic 111–164; BP diastolic 67–94
[2016-07-18 04:44] LABS: HEMATOCRIT 27.6 % (42.0-52.0); HEMOGLOBIN 9.5 gm/dL (14.0-18.0); MCH 28.9 pg (26.0-34.0); MCHC 34.3 % (28.0-37.0); MCV 84.1 fL (80.0-100.0); RBC 3.28 mil/uL (4.50-6.00); RDW 15.8 % (10.5-14.5); WBC 8.9 thou/uL (4.0-11.0)
[2016-07-18 05:11] LABS: ALBUMIN 2.4 g/dL (3.4-5.0); CALCIUM 8.2 mg/dL (8.5-10.1); PHOSPHORUS 6.7 mg/dL (2.5-4.9); POTASSIUM 3.9 mmol/L (3.5-5.1)
[2016-07-19] VITALS (26 sets, daily range): BP systolic 85–144; BP diastolic 50–76
[2016-07-19 04:48] LABS: HEMATOCRIT 27.5 % (42.0-52.0); HEMOGLOBIN 9.1 gm/dL (14.0-18.0); MCH 28.3 pg (26.0-34.0); MCHC 32.9 % (28.0-37.0); MCV 85.8 fL (80.0-100.0); RBC 3.21 mil/uL (4.50-6.00); RDW 15.4 % (10.5-14.5); WBC 12.6 thou/uL (4.0-11.0)
[2016-07-19 04:58] LABS: ALBUMIN 2.5 g/dL (3.4-5.0); CALCIUM 8.4 mg/dL (8.5-10.1); CREATININE 5.7 mg/dL (0.6-1.3); PHOSPHORUS 6.4 mg/dL (2.5-4.9); POTASSIUM 3.2 mmol/L (3.5-5.1)
[2016-07-19 11:33] LABS: ABG SAMPLE TYPE ARTERIAL; HCO3 30.1 mmol/L (22.0-26.0); LACTATE 1.28 mmol/L (0.5-2.0); O2(CT) 13.1 mL/dL (15.0-23.0); O2Hb 97.4 % (92.0-98.0); PCO2 46.9 mmHg (35.0-45.0); Pressure Support 8 cm H20; STICK SITE L.RADIAL; pH 7.425 (7.360-7.450); sO2 98.5 % (92.0-98.0); tCO2 31.5 mmol/L (24.0-30.0)
[2016-07-20] VITALS (22 sets, daily range): BP systolic 89–184; BP diastolic 55–111
[2016-07-20 06:29] LABS: ALBUMIN 2.4 g/dL (3.4-5.0); CALCIUM 8.2 mg/dL (8.5-10.1); CREATININE 5.2 mg/dL (0.6-1.3); MAGNESIUM 2.1 mg/dL (1.8-2.4); PHOSPHORUS 7.9 mg/dL (2.5-4.9); POTASSIUM 3.2 mmol/L (3.5-5.1)
[2016-07-21] VITALS (13 sets, daily range): BP systolic 116–192; BP diastolic 58–117
[2016-07-21 04:57] LABS: HEMATOCRIT 27.2 % (42.0-52.0); HEMOGLOBIN 8.9 gm/dL (14.0-18.0); MCH 27.5 pg (26.0-34.0); MCHC 32.8 % (28.0-37.0); MCV 83.9 fL (80.0-100.0); PLATELET COUNT 274 thou/uL (150-400); RBC 3.25 mil/uL (4.50-6.00); RDW 15.6 % (10.5-14.5); WBC 11.2 thou/uL (4.0-11.0)
[2016-07-21 05:09] LABS: ALBUMIN 2.7 g/dL (3.4-5.0); CALCIUM 8.3 mg/dL (8.5-10.1); CREATININE 4.8 mg/dL (0.6-1.3); POTASSIUM 3.5 mmol/L (3.5-5.1); TOTAL BILIRUBIN 0.4 mg/dL (<0.1-1.0); TOTAL PROTEIN 7.5 g/dL (6.4-8.2)
[2016-07-21 05:12] LABS: MANUAL DIFF YES
[2016-07-21 06:47] LABS: METAMYELOCYTES 1 %; TOTAL CELL COUNT 100
[2016-07-21 06:48] LABS: ABSOLUTE NEUTROPHILS 9.1 thou/uL (1.4-8.2); MYELOCYTES 1 %
[2016-07-22 04:00] VITALS: BP 151/92
[2016-07-22 07:47] VITALS: BP 110/52
[2016-07-22 07:56] LABS: HEMATOCRIT 28.3 % (42.0-52.0); HEMOGLOBIN 9.2 gm/dL (14.0-18.0); MANUAL DIFF YES; MCH 27.8 pg (26.0-34.0); MCHC 32.5 % (28.0-37.0); MCV 85.5 fL (80.0-100.0); PLATELET COUNT 268 thou/uL (150-400); RBC 3.31 mil/uL (4.50-6.00); RDW 15.2 % (10.5-14.5); WBC 11.8 thou/uL (4.0-11.0)
[2016-07-22 08:03] LABS: ALBUMIN 2.9 g/dL (3.4-5.0); CALCIUM 8.6 mg/dL (8.5-10.1); CREATININE 4.2 mg/dL (0.6-1.3); PHOSPHORUS 4.5 mg/dL (2.5-4.9); POTASSIUM 3.5 mmol/L (3.5-5.1)
[2016-07-22 08:37] VITALS: BP 176/90
[2016-07-22 08:38] LABS: NUCLEATED RBCS 1 /100WBC; TOTAL CELL COUNT 100
[2016-07-22 16:05] VITALS: BP 176/99
[2016-07-22 22:45] VITALS: BP 153/95
[2016-07-23 04:11] VITALS: BP 138/110
[2016-07-23 06:49] LABS: ALBUMIN 2.8 g/dL (3.4-5.0); CALCIUM 8.8 mg/dL (8.5-10.1); CREATININE 3.9 mg/dL (0.6-1.3); PHOSPHORUS 3.9 mg/dL (2.5-4.9); POTASSIUM 3.3 mmol/L (3.5-5.1)
[2016-07-23 08:20] VITALS: BP 191/93
[2016-07-23 15:51] VITALS: BP 189/81
[2016-07-23 20:00] VITALS: BP 173/79
[2016-07-24 04:30] VITALS: BP 141/89
[2016-07-24 07:49] LABS: ALBUMIN 2.9 g/dL (3.4-5.0); CALCIUM 8.8 mg/dL (8.5-10.1); CREATININE 3.6 mg/dL (0.6-1.3); PHOSPHORUS 4.2 mg/dL (2.5-4.9); POTASSIUM 3.4 mmol/L (3.5-5.1)
[2016-07-24 08:51] VITALS: BP 121/76
[2016-07-24 17:38] VITALS: BP 129/106
[2016-07-24 20:00] VITALS: BP 147/93
[2016-07-25 04:30] VITALS: BP 173/82
[2016-07-25 06:00] LABS: ABSOLUTE NEUTROPHILS 7.5 thou/uL (1.4-8.2); BASOPHILS 0.5 % (0.0-2.0); EOSINOPHILS 7.2 % (0.0-3.0); HEMOGLOBIN 9.5 gm/dL (14.0-18.0); LYMPHOCYTES 9.5 % (24.0-44.0); MCH 28.2 pg (26.0-34.0); MCHC 32.7 % (28.0-37.0); MONOCYTES 5.1 % (1.0-8.0); PLATELET COUNT 283 thou/uL (150-400); POLYS 77.7 % (36.0-66.0); RBC 3.37 mil/uL (4.50-6.00); RDW 15.9 % (10.5-14.5); WBC 9.6 thou/uL (4.0-11.0)
[2016-07-25 06:15] LABS: ALBUMIN 2.9 g/dL (3.4-5.0); CALCIUM 8.8 mg/dL (8.5-10.1); CREATININE 3.8 mg/dL (0.6-1.3); PHOSPHORUS 5.3 mg/dL (2.5-4.9); POTASSIUM 3.3 mmol/L (3.5-5.1)
[2016-07-25 06:22] LABS: MANUAL DIFF NO
[2016-07-25 06:30] VITALS: BP 144/63
[2016-07-25 07:55] VITALS: BP 108/69
[2016-07-25 12:53] LABS: ABG SAMPLE TYPE ARTERIAL; BE(vivo) 2.2 mmol/L (-2 to +3); HCO3 24.7 mmol/L (22.0-26.0); LACTATE 1.89 mmol/L (0.5-2.0); O2(CT) 14.5 mL/dL (15.0-23.0); PCO2 31.5 mmHg (35.0-45.0); PO2 76.8 mmHg (80.0-100.0); pH 7.513 (7.360-7.450); sO2 96.6 % (92.0-98.0); tCO2 25.7 mmol/L (24.0-30.0)
[2016-07-25 12:57] LABS: STICK SITE L.RADIAL
[2016-07-25 16:30] VITALS: BP 142/63
[2016-07-25 20:00] VITALS: BP 136/69
[2016-07-26 04:00] VITALS: BP 132/60
[2016-07-26 05:39] LABS: ABSOLUTE NEUTROPHILS 5.7 thou/uL (1.4-8.2); BASOPHILS 0.8 % (0.0-2.0); EOSINOPHILS 8.2 % (0.0-3.0); HEMATOCRIT 29.6 % (42.0-52.0); HEMOGLOBIN 9.5 gm/dL (14.0-18.0); LYMPHOCYTES 14.9 % (24.0-44.0); MCH 27.9 pg (26.0-34.0); MCV 87.2 fL (80.0-100.0); MONOCYTES 6.5 % (1.0-8.0); PLATELET COUNT 286 thou/uL (150-400); POLYS 69.6 % (36.0-66.0); RDW 15.6 % (10.5-14.5); WBC 8.2 thou/uL (4.0-11.0)
[2016-07-26 05:41] LABS: MANUAL DIFF NO
[2016-07-26 05:59] LABS: ALBUMIN 2.8 g/dL (3.4-5.0); CALCIUM 8.8 mg/dL (8.5-10.1); PHOSPHORUS 6.2 mg/dL (2.5-4.9); POTASSIUM 3.3 mmol/L (3.5-5.1)
[2016-07-26 07:25] VITALS: BP 106/65
[2016-07-26 16:12] VITALS: BP 126/63
[2016-07-26 19:30] VITALS: BP 123/64
[2016-07-27 04:30] VITALS: BP 126/50
[2016-07-27 06:44] LABS: ALBUMIN 2.7 g/dL (3.4-5.0); CALCIUM 8.7 mg/dL (8.5-10.1); CREATININE 4.4 mg/dL (0.6-1.3); PHOSPHORUS 6.1 mg/dL (2.5-4.9); POTASSIUM 3.4 mmol/L (3.5-5.1)
[2016-07-27 07:55] VITALS: BP 127/69
[2016-07-27 15:47] VITALS: BP 96/57
[2016-07-27 20:00] VITALS: BP 118/53
[2016-07-28 04:30] VITALS: BP 113/55
[2016-07-28 07:58] LABS: ALBUMIN 2.8 g/dL (3.4-5.0); CALCIUM 8.6 mg/dL (8.5-10.1); CREATININE 4.8 mg/dL (0.6-1.3); PHOSPHORUS 5.8 mg/dL (2.5-4.9); POTASSIUM 3.8 mmol/L (3.5-5.1)
[2016-07-28 08:17] VITALS: BP 101/58
[2016-07-28 15:49] VITALS: BP 104/66
[2016-07-28 19:58] VITALS: BP 124/69
[2016-07-29 03:42] VITALS: BP 102/64
[2016-07-29 06:02] LABS: ALBUMIN 2.8 g/dL (3.4-5.0); CALCIUM 8.6 mg/dL (8.5-10.1); CREATININE 4.8 mg/dL (0.6-1.3); PHOSPHORUS 5.1 mg/dL (2.5-4.9); POTASSIUM 3.7 mmol/L (3.5-5.1)
[2016-07-29 08:57] VITALS: BP 95/63
[2016-07-29 16:49] VITALS: BP 121/56
[2016-07-29 23:00] VITALS: BP 94/48
[2016-07-30] VITALS (13 sets, daily range): BP systolic 91–122; BP diastolic 38–72
[2016-07-30 04:50] LABS: HEMATOCRIT 28.2 % (42.0-52.0); HEMOGLOBIN 9.3 gm/dL (14.0-18.0); MCH 28.4 pg (26.0-34.0); MCHC 32.9 % (28.0-37.0); MCV 86.4 fL (80.0-100.0); RBC 3.26 mil/uL (4.50-6.00); RDW 15.2 % (10.5-14.5); WBC 6.8 thou/uL (4.0-11.0)
[2016-07-30 05:08] LABS: ALBUMIN 2.7 g/dL (3.4-5.0); CALCIUM 8.7 mg/dL (8.5-10.1); CREATININE 4.4 mg/dL (0.6-1.3); PHOSPHORUS 5.1 mg/dL (2.5-4.9); POTASSIUM 3.9 mmol/L (3.5-5.1)
[2016-07-31] VITALS (95 sets, daily range): BP systolic 55–143; BP diastolic 19–103
[2016-07-31 05:25] LABS: ABG SAMPLE TYPE ARTERIAL; BE(vivo) -6.8 mmol/L (-2 to +3); HCO3 18.3 mmol/L (22.0-26.0); LACTATE 2.58 mmol/L (0.5-2.0); O2(CT) 14.3 mL/dL (15.0-23.0); O2Hb 90.7 % (92.0-98.0); PCO2 34.9 mmHg (35.0-45.0); PO2 64.6 mmHg (80.0-100.0); pH 7.337 (7.360-7.450); sO2 91.6 % (92.0-98.0); tCO2 19.4 mmol/L (24.0-30.0)
[2016-07-31 05:28] LABS: STICK SITE L.RADIAL
[2016-07-31 06:56] LABS: ABSOLUTE NEUTROPHILS 6.6 thou/uL (1.4-8.2); BASOPHILS 0.7 % (0.0-2.0); HEMATOCRIT 31.8 % (42.0-52.0); HEMOGLOBIN 10.3 gm/dL (14.0-18.0); LYMPHOCYTES 16.9 % (24.0-44.0); MCH 28.3 pg (26.0-34.0); MCHC 32.4 % (28.0-37.0); MCV 87.3 fL (80.0-100.0); MONOCYTES 9.3 % (1.0-8.0); PLATELET COUNT 298 thou/uL (150-400); POLYS 63.1 % (36.0-66.0); RBC 3.65 mil/uL (4.50-6.00); RDW 15.7 % (10.5-14.5); WBC 10.4 thou/uL (4.0-11.0)
[2016-07-31 07:01] LABS: MANUAL DIFF NO
[2016-07-31 08:00] LABS: CALCIUM 8.7 mg/dL (8.5-10.1); CREATININE 5.2 mg/dL (0.6-1.3)
[2016-07-31 08:04] LABS: ALBUMIN 2.8 g/dL (3.4-5.0); TOTAL BILIRUBIN 0.8 mg/dL (<0.1-1.0); TOTAL PROTEIN 8.5 g/dL (6.4-8.2)
[2016-07-31 08:57] LABS: INR 1.3; PROTIME 13.5 Seconds (9.3-11.4)
[2016-07-31 11:42] LABS: AMYLASE 29 U/L (25-115)
[2016-07-31 16:44] LABS: ABG SAMPLE TYPE ARTERIAL; BE(vivo) -6.6 mmol/L (-2 to +3); LACTATE 3.25 mmol/L (0.5-2.0); O2(CT) 13.9 mL/dL (15.0-23.0); O2Hb 88.3 % (92.0-98.0); PCO2 32.8 mmHg (35.0-45.0); PO2 57.2 mmHg (80.0-100.0); STICK SITE R.BRACHIAL; pH 7.357 (7.360-7.450)
[2016-07-31 16:46] LABS: Pressure Support 8 cm H20
[2016-07-31 19:15] LABS: ABG SAMPLE TYPE ARTERIAL; BE(vivo) -9.1 mmol/L (-2 to +3); HCO3 14.9 mmol/L (22.0-26.0); O2(CT) 15.8 mL/dL (15.0-23.0); O2Hb 98.3 % (92.0-98.0); PCO2 26.9 mmHg (35.0-45.0); PO2 213.7 mmHg (80.0-100.0); pH 7.362 (7.360-7.450); sO2 99.4 % (92.0-98.0); tCO2 15.8 mmol/L (24.0-30.0)
[2016-07-31 19:16] LABS: STICK SITE L.BRACHIAL
[2016-07-31 19:17] LABS: LACTATE 5.75 mmol/L (0.5-2.0); TIDAL VOLUME 550 ml
[2016-07-31 19:18] LABS: ABG COMMENT A/C MODE POST
[2016-07-31 19:19] LABS: CALCIUM 8.8 mg/dL (8.5-10.1); POTASSIUM 4.6 mmol/L (3.5-5.1)
[2016-07-31 19:21] LABS: CREATININE 6.7 mg/dL (0.6-1.3)
[2016-07-31 22:01] LABS: CALCIUM 8.6 mg/dL (8.5-10.1); CREATININE 7.3 mg/dL (0.6-1.3)
[2016-07-31 22:07] LABS: ALBUMIN 2.6 g/dL (3.4-5.0); TOTAL BILIRUBIN 1.1 mg/dL (<0.1-1.0); TOTAL PROTEIN 7.6 g/dL (6.4-8.2)
[2016-07-31 22:08] LABS: POTASSIUM 5.8 mmol/L (3.5-5.1)
[2016-08-01] VITALS (131 sets, daily range): BP systolic 48–174; BP diastolic 14–157
[2016-08-01 02:38] LABS: ABG SAMPLE TYPE VENOUS; BE(vivo) -12.8 mmol/L (-2 to +3); HCO3 13.3 mmol/L (22.0-26.0); O2(CT) 11.4 mL/dL (15.0-23.0); O2Hb VENOUS 75.9 (65.0-85.0); PCO2 VENOUS 31.4 mmHg (41.0-51.0); PO2 VENOUS 44.5 mmHg (35.0-45.0); sO2 VENOUS 73.6 % (65.0-85.0); tCO2 14.3 mmol/L (24.0-30.0)
[2016-08-01 02:39] LABS: ABG COMMENT VBG #1; LACTATE 6.16 mmol/L (0.5-2.0); STICK SITE PICC LINE; TIDAL VOLUME 550 ml
[2016-08-01 02:51] LABS: HEMOGLOBIN 9.6 gm/dL (14.0-18.0); MCH 27.9 pg (26.0-34.0); MCHC 31.9 % (28.0-37.0); MCV 87.5 fL (80.0-100.0); RBC 3.43 mil/uL (4.50-6.00); RDW 16.1 % (10.5-14.5); WBC 21.6 thou/uL (4.0-11.0)
[2016-08-01 03:02] LABS: FIBRINOGEN 366.6 mg/dL (210-360); INR 1.8; PROTIME 18.7 Seconds (9.3-11.4)
[2016-08-01 03:07] LABS: ALBUMIN 2.5 g/dL (3.4-5.0); CALCIUM 8.7 mg/dL (8.5-10.1); PHOSPHORUS 5.3 mg/dL (2.5-4.9); POTASSIUM 5.2 mmol/L (3.5-5.1)
[2016-08-01 03:08] LABS: APTT 37.8 Seconds (24.5-32.8)
[2016-08-01 03:14] LABS: MANUAL DIFF YES; PLATELET COUNT 206 thou/uL (150-400)
[2016-08-01 05:50] LABS: NUCLEATED RBCS 1 /100WBC; PLATELET ESTIMATE NORMAL; TOTAL CELL COUNT 100
[2016-08-01 05:51] LABS: ANISOCYTOSIS 2+
== END 2016-08-01 15:51 | DRG 853 ==
LOC: ER 09:00 → EROBS 11:48 → ICU 11:48 → 4E 07-21 19:49 → ICU 07-31 06:00
PROVIDERS: Emergency Medicine; Family Medicine; Hospitalist; Internal Medicine Infectious Disease; Internal Medicine Nephrology; Internal Medicine Pulmonary Disease; Nurse Practitioner; Nurse Practitioner Acute Care; Surgery
PROC: 0BH17EZ Insertion of Endotracheal Airway into Trachea, Via Natural or Artificial Opening (ICD-10-PCS; principal; 2016-07-09)
PROC: 5A1955Z Respiratory Ventilation, Greater than 96 Consecutive Hours (ICD-10-PCS; 2016-07-09)
PROC: 05HB33Z Insertion of Infusion Device into Right Basilic Vein, Percutaneous Approach (ICD-10-PCS; 2016-07-09)
PROC: B54MZZA Ultrasonography of Right Upper Extremity Veins, Guidance (ICD-10-PCS; 2016-07-09)
PROC: 0DJ08ZZ Inspection of Upper Intestinal Tract, Via Natural or Artificial Opening Endoscopic (ICD-10-PCS; 2016-07-29)
PROC: 0DH60UZ Insertion of Feeding Device into Stomach, Open Approach (ICD-10-PCS; 2016-07-30)
PROC: 05HM33Z Insertion of Infusion Device into Right Internal Jugular Vein, Percutaneous Approach (ICD-10-PCS; 2016-08-01)
DX: A41.9 Sepsis, unspecified organism (principal); J69.0 Pneumonitis due to inhalation of food and vomit; J96.01 Acute respiratory failure with hypoxia; G93.40 Encephalopathy, unspecified; N17.9 Acute kidney failure, unspecified; Z99.11 Dependence on respirator [ventilator] status; I42.9 Cardiomyopathy, unspecified; E46 Unspecified protein-calorie malnutrition; Z68.41 Body mass index [BMI] 40.0-44.9, adult; E87.0 Hyperosmolality and hypernatremia; D62 Acute posthemorrhagic anemia; M62.82 Rhabdomyolysis; I50.30 Unspecified diastolic (congestive) heart failure; R65.20 Severe sepsis without septic shock; I25.10 Atherosclerotic heart disease of native coronary artery without angina pectoris; E11.9 Type 2 diabetes mellitus without complications; Z79.52 Long term (current) use of systemic steroids; Z93.1 Gastrostomy status; D63.8 Anemia in other chronic diseases classified elsewhere; I49.5 Sick sinus syndrome; Z95.0 Presence of cardiac pacemaker; R13.12 Dysphagia, oropharyngeal phase; Z23 Encounter for immunization; E87.6 Hypokalemia; I11.0 Hypertensive heart disease with heart failure; Z66 Do not resuscitate; Z51.5 Encounter for palliative care
CPT/HCPCS: 10078; 10783; 27000; 32110; 50010; 50101; 50386; 50403; 51412; 56524; 56525; 56527; 62110; 62900; 70005; 82310; 85014; 85026